=== PATIENT | female | born 1970 | race Two or more races ===

== ENCOUNTER 2016-08-03 20:21 | Emergency (ER) | payer OTHER ==
[~2016-08-03] VITALS: Ht 165.1 cm; Wt 68.0 kg
[2016-08-03] MEDS: MAGNESIUM SULFATE 1GM/100ML 100 ML IV SCH ×2 (00:07→23:00)
[2016-08-03] MEDS ORDERED: SODIUM CHLORIDE 0.9% 1,000 ML IVB ONE (20:48)
[2016-08-03 21:27] LABS: DEFINITIVE VIEW TRANSMISSION; Mean Platelet Volume 8.9 fL (7.4-10.4)
[2016-08-03 21:33] LABS: Urine Bilirubin Negative (Negative); Urine Blood Negative /uL (Negative); Urine Color Yellow (Yellow); Urine Glucose Normal (Normal); Urine Ketone Negative (Negative); Urine Nitrite Negative (Negative); Urine RBC <1 /hpf (0 - 4); Urine Squamous Epithelial Cell FEW /hpf (<5); Urine Urobilinogen Normal (Negative); Urine pH 5.5 (5.0-8.0)
[2016-08-03 21:41] LABS: Albumin 3.5 g/dL (3.4-5.0); Calcium 7.8 mg/dL (8.5-10.1); Magnesium 2.2 mg/dL (1.6-2.6); Potassium 3.4 mmol/L (3.5-5.1)
[2016-08-03 21:44] LABS: BUN/Creatinine Ratio 12.9; White Blood Cell 7.1 10^3/uL (4.4-10.8)
[2016-08-03 21:45] LABS: Hematocrit 35.9 % (36.0-46.0); Hemoglobin 11.6 g/dL (12.2-16.2); Mean Corpuscular Volume 89.2 fL (80.0-100.0)
[2016-08-03 21:46] LABS: Bilirubin, Total 0.1 mg/dL (0.2-1.0); Mean Corpuscular Hemoglobin 28.8 pg (28.0-32.0); Mean Corpuscular Hgb Conc. 32.3 g/dL (32.0-36.0); Platelet Count (auto) 388 10^3/uL (140-450); Red Cell Distribution Width 17.1 % (11.6-16.0); Total Protein 6.8 g/dL (6.4-8.2)
[2016-08-03 21:47] LABS: Metamyelocytes % 0; Myelocytes % 0; Promyelocytes % 0; Reactive Lymphocytes 0
[2016-08-03 21:54] LABS: Acetaminophen < 2.0 ug/mL (10-30); Salicylate 2.8 mg/dL (2.8-20.0)
[2016-08-03] MEDS ORDERED: MVI in SODIUM CHLORIDE 0.9% 1,010 ML IV ONE (22:09)
[2016-08-03] MEDS ORDERED: THIAMINE HCL 100 MG/ML 2ML VIAL IV ONE (22:15)
[2016-08-03 22:28] LABS: Platelet Estimate Adequate; RBC Morphology Normal
[2016-08-04 00:30] VITALS: BP 131/89
== END 2016-08-04 00:48 | disposition home or self-care (01) ==
LOC: ER 20:31
DX: T42.4X2A Poisoning by benzodiazepines, intentional self-harm, initial encounter (principal); F32.9 Major depressive disorder, single episode, unspecified; F10.129 Alcohol abuse with intoxication, unspecified; D64.9 Anemia, unspecified; I10 Essential (primary) hypertension; Y92.9 Unspecified place or not applicable; E87.0 Hyperosmolality and hypernatremia; F17.210 Nicotine dependence, cigarettes, uncomplicated; M32.9 Systemic lupus erythematosus, unspecified; F41.9 Anxiety disorder, unspecified
CPT/HCPCS: 36415; 71010; 80053; 80320; 80329; 81001; 81025; 83735; 85007; 85027; 93005; 94761; 96361; 96365; 96366; 96375; 99285; G0434; J3411; J3475; J7030

== ENCOUNTER 2023-12-30 22:39 | Emergency (ER) | payer OTHER ==
[~2023-12-30] VITALS: Ht 165.1 cm; Wt 72.6 kg
[2023-12-30 23:45] LABS: Basophils # (auto) 0 10 ^3/uL (0-0.2); Basophils % (auto) 0.6 % (0.0-2.0); Eosinophils # (auto) 0 10 ^3/uL (0-0.8); Eosinophils % (auto) 0.7 % (0.0-7.0); Hematocrit 40.5 % (36.0-46.0); Hemoglobin 13.7 g/dL (12.2-16.2); Lymphocytes # (auto) 1.5 10 ^3/uL (0.4-5.4); Lymphocytes % (auto) 24.1 % (10.0-50.0); Mean Corpuscular Hgb Conc. 33.7 g/dL (32.0-36.0); Mean Corpuscular Volume 100.8 fL (80.0-100.0); Monocytes # (auto) 0.6 10 ^3/uL (0-1.3); Monocytes % (auto) 10.3 % (0.0-12.0); Neutrophils % (auto) 64.3 % (37.0-80.0); Nucleated Red Blood Cells % 0.1 %; Platelet Count (auto) 312 10^3/uL (140-450); Red Blood Cells 4.02 10^6/uL (4.0-5.20); Red Cell Distribution Width 14.2 % (11.8-14.3); White Blood Cell 6.2 10^3/uL (4.4-10.8)
[2023-12-31 00:06] LABS: Acetaminophen < 2.0 UG/ML (10.0-20.0); Alanine Aminotransferase 21 U/L (7-40); Albumin 4.9 g/dL (3.2-4.8); Alkaline Phosphatase 60 U/L (46-116); Anion Gap 11 (5-15); Aspartate Aminotransferase 15 U/L (13-40); BUN/Creatinine Ratio 13.7 (10.0-20.0); Bilirubin, Total 0.4 mg/dL (0.2-1.0); Blood Urea Nitrogen 14 mg/dL (9-23); Calcium 10.2 mg/dL (8.7-10.4); Carbon Dioxide 24 mmol/L (20-30); Chloride 105 mmol/L (98-107); Glucose 107 mg/dL (74-106); Potassium 3.5 mmol/L (3.5-5.1); Sodium 140 mmol/L (136-145); Total Protein 7.6 g/dL (5.7-8.2)
[2023-12-31 00:21] LABS: Salicylate < 3.0 mg/dL (2.8-20.0)
[2023-12-31 00:33] LABS: Blood Alcohol 135.9 mg/dL (<10)
[2023-12-31] MEDS: HYDROcodone-ACET 10/325MG TAB PO ONE (01:26)
[2023-12-31] MEDS: SERTRALINE HCL 50 MG TAB PO ONE (01:27)
[2023-12-31 01:30] VITALS: BP 127/82; PULSE 64; RESP 15; TEMP 98; O2SAT 98
[2023-12-31 07:58] LABS: Urine Bacteria FEW /hpf (None Seen); Urine Blood TRACE /uL (Negative); Urine Clarity Clear (Clear); Urine Protein, UAD Negative (Negative); Urine Specific Gravity 1.005 (1.001-1.035); Urine Urobilinogen Normal (Negative); Urine WBC <1 /hpf (0 - 5)
[2023-12-31 08:01] LABS: Amphetamine Screen, Urine Neg (NEGATIVE); Barbiturate Scree,Urine Neg (NEGATIVE); Benzodiazephine Screen, Urine Neg (NEGATIVE)
[2023-12-31 08:02] LABS: Cannabinoid Screen, Urine Neg (NEGATIVE); Cocaine Screen, Urine Neg (NEGATIVE); Opiate Scree,Urine Neg (NEGATIVE); Phencyclidine Screen, Urine Neg (NEGATIVE)
[2023-12-31 08:04] LABS: Urine Color Light-Yellow (Yellow)
== END 2023-12-31 04:50 | disposition home or self-care (01) ==
LOC: EDBD 22:39 → ER 22:39
DX: R45.851 Suicidal ideations (principal); F10.129 Alcohol abuse with intoxication, unspecified; F17.210 Nicotine dependence, cigarettes, uncomplicated; F41.9 Anxiety disorder, unspecified; F32.9 Major depressive disorder, single episode, unspecified; I10 Essential (primary) hypertension
CPT/HCPCS: 36415; 80053; 80307; 80320; 80329; 81001; 85025